=== PATIENT | female | born 1955 | race Caucasian/White ===

== ENCOUNTER 2019-12-29 14:54 | Emergency (ER) | payer SELFPAY ==
--- NOTE | 2019-12-29 17:51 | RAD ---
LEFT HAND THREE VIEWS: 12/29/19 No acute fracture was seen. A small line was seen in the distal end of the middle phalanx of the fift h finger, but I doubt that it is a fracture looking at the other views. Correlate with site of pain. 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 The carpal bones appea r normal. IMPRESSION: No acute finding. POS: HOME
== END 2019-12-29 15:26 | disposition home or self-care (01) ==
LOC: BURERS 14:54
DX: S60.222A Contusion of left hand, initial encounter (principal); F32.9 Major depressive disorder, single episode, unspecified; Z79.899 Other long term (current) drug therapy; W17.89XA Other fall from one level to another, initial encounter

== ENCOUNTER 2022-06-22 14:47 | Outpatient (CLI) | payer MEDICARE | END 2022-06-22 14:48 | disposition home or self-care (01) | LOC: BURRAD 14:47 | PROVIDERS: ATTEND Family Medicine | DX: L03.012 Cellulitis of left finger (principal) ==

== ENCOUNTER 2024-04-11 14:05 | Outpatient (CLI) | payer MEDICARE | END 2024-04-11 14:06 | disposition home or self-care (01) | LOC: BURRAD 14:05 | PROVIDERS: ATTEND Nurse Practitioner Family | DX: S49.91XA Unspecified injury of right shoulder and upper arm, initial encounter (principal) ==